=== PATIENT | female | born 1960 ===

== ENCOUNTER 2017-12-29 09:20 | Day surgery (SDC) | payer OTHER ==
[~2017-12-29 09:20] MED LIST: Buffered Lidocaine 0.9% SYRIN* 5 ML/SYR SYRINGE INTRADERM ONE; Dexamethasone IV* 4 MG/ML 1 ML (4 MG) IV SLOW PU ONE; Famotidine IV* 10 MG/ML 2 ML (20 mg) IV ONE
[2017-12-29] MEDS ORDERED: Dexamethasone IV* 4 MG/ML 1 ML (4 MG) ONE (09:26)
[2017-12-29] MEDS ORDERED: ceFAZolin 2 GM PREMIX in ORs 2 GM/50 ML BAG IVPB ONE (09:26)
[2017-12-29] MEDS ORDERED: Famotidine IV* 10 MG/ML 2 ML (20 mg) ONE (09:26)
[2017-12-29] MEDS ORDERED: fentaNYL* 50 MCG/ML 5 ML VIAL (250 MCG VIAL) ONE (09:28)
[2017-12-29] MEDS ORDERED: Midazolam* 1 MG/ML 2 ML VIAL (2 MG) ONE (09:28)
[2017-12-29] MEDS ORDERED: Lidocaine 2% PF * 5 ML VIAL ONE (09:31)
[2017-12-29] MEDS ORDERED: Propofol* 10 MG/ML 20 ML BTL IV PUSH ONE (09:31)
[2017-12-29] MEDS ORDERED: ROPIVACAINE 5 MG/ML 30 ML BTL (0.5%) ONE (10:34)
[2017-12-29] MEDS ORDERED: Lidocain 1% EPI 1:100,000 * 30 ML MDV ONE (10:34)
[2017-12-29] MEDS ORDERED: Ketorolac INJ* 30 MG/ML 1 ML VIAL IV PRN (10:35)
[2017-12-29] MEDS ORDERED: Acetaminophen TAB* 325 MG PO PRN (10:35)
[2017-12-29] MEDS ORDERED: fentaNYL* 50 MCG/ML 2 ML VIAL (100 MCG VIAL) IV PRN (10:35)
[2017-12-29] MEDS ORDERED: Naloxone* 0.4 MG/ML 1 ML VIAL IV PRN (10:35)
[2017-12-29] MEDS ORDERED: DiMENhydriNATE IV* 50 MG/ML VIAL IV PUSH PRN (10:35)
[2017-12-29] MEDS ORDERED: Ondansetron INJ* 2 MG/ML VIAL IV PRN (10:35)
[2017-12-29] MEDS ORDERED: oxyCODONE/Acetamin 5/325 MG* TAB PO PRN (10:35)
[2017-12-29] MEDS ORDERED: Ondansetron INJ* 2 MG/ML VIAL ONE (11:26)
[2017-12-29] MEDS ORDERED: Ondansetron ODT TAB* 4 MG ONE (13:10)
[2017-12-29] MEDS ORDERED: Scopolamine 1.5 mg* PATCH ONE (13:16)
[2017-12-29 13:51] VITALS: BP 103/57
[2017-12-29] MEDS ORDERED: Scopolamine 1.5 mg* PATCH TRANSDERM SCH (14:00)
--- NOTE | 2017-12-31 15:39 | OP ---
DATE OF OPERATION: 12/29/17 FORMERLY [facility] DATE OF : 58 SURGEON: Liset Hill MD. OPENSTACK CLOUD CONSULTING ARCHITECT: None available. PRE-OP DIAGNOSIS: Right knee possible loose body and synovitis. POST-OP DIAGNOSES: 1. Right knee synovitis. 2. Grade 2 chondral changes of the medial femoral condyle. 3. Lateral meniscal fraying. OPERATIVE PROCEDURE: Right knee arthroscopy, synovectomy, chondroplasty. INDICATIONS: Rhonda Wayne is a 57-year-old female who sustained a work-related injury on 08/13/17. She was unable to get back to activities as tolerated. We were concerned for a possible loose body in the knee. Risks and benefits to surgery were discussed in length including, but not limited to, bleeding; infection; damage to nerves, vessels, surrounding structures; wound nonhealing; persistent pain; need for surgery; scarring; stiffness; incomplete relief of symptoms; and risk of anesthesia. She has elected to proceed. COMPLICATIONS: None. ESTIMATED BLOOD LOSS: Minimal. PATHOLOGY SPECIMEN: None. DESCRIPTION OF PROCEDURE: The patient was greeted in the preoperative area by the attending surgeon. Correct extremity was marked, consent was confirmed. The patient was then brought back to the operating suite where she was placed in a supine position on the operating table. She then underwent general anesthesia with LMA intubation, after which she was appropriately positioned in the bed. An unsterile tourniquet was placed high on the right proximal thigh. The right leg was prepped and draped in the usual sterile fashion beginning with chlorhexidine soap, scrub, and alcohol wipe and a final prep with ChloraPrep. After appropriate surgical pause indicating site, side, procedure, and administration of antibiotics, the right knee was intra-articularly injected with 1% lidocaine with epi. An anterolateral portal was made sharply with 11- blade. Scope was introduced to the joint, the joint was examined, There were grade 0 changes to the patellofemoral joints. The medial and lateral gutters were intact without any loose debris. There was significant synovitis in the anteromedially and laterally. The anteromedial portal was made in outside end fashion, and shaver and the electrocautery device were used to remove the abundant synovitis that was present. This exposed the ACL and PCL that were intact. The medial meniscus was identified and found to be intact. She had a ridge along the weightbearing surface of the medial femoral condyle with grade 2 changes along center ridge of the weightbearing zone of the medial femoral condyle. Tibial plateau had grade 1 to 2 changes. The medial meniscus was probed and found to be intact. The lateral port was examined and the lateral femoral condyle had grade 0 changes and lateral plateau had grade 0 changes. The meniscus had some mild fraying. This was debrided back using a shaver. The shaver was then used to do mild chondroplasty of the medial femoral condyle. Then, attention was directed to the synovitis about the patella. Again, the MRIs were pulled out to find the loose body. There was a small suggestion of the loose body about the anterior aspect of the plateau and these small areas were removed, but there was no bony piece. It was all soft tissue type of debris. The knee was then inspected. There was no evidence of impingement left. Any synovitis that was available was removed. Hemostasis was obtained. The knee was then thoroughly lavaged and irrigated. The wounds were then copiously irrigated with sterile saline. The ports were closed with 3 -0 nylon in an interrupted fashion. The knee was intra-articularly injected 0.2 % of ropivacaine. Sterile dressings were applied. A Cryo/Cuff was applied. She was awoken from anesthesia and transferred to PACU in stable condition. POSTOPERATIVE PLAN: She will be weightbearing as tolerated. Crutches for 3 to 5 days. She will be discharged on pain medication. DVT prophylaxis was considered, but deferred due to no previous personal or family history. I will see the patient back in 10 to 14 days. [id number]/[facility] #: [id number] ERNESTO
== END 2017-12-29 13:46 | disposition home or self-care (01) ==
LOC: OREAST 09:20
PROVIDERS: ATTEND Orthopaedic Surgery
DX: S83.241A Other tear of medial meniscus, current injury, right knee, initial encounter (principal); D64.9 Anemia, unspecified; M65.861 Other synovitis and tenosynovitis, right lower leg; X58.XXXA Exposure to other specified factors, initial encounter
CPT/HCPCS: 88304; A9270-GY; J0690; J1100; J2250; J2405; J2704; J2795; J3010

== ENCOUNTER 2018-09-09 05:35 | Observation (INO) | payer OTHER ==
--- NOTE | 2018-08-28 16:40 | HP ---
PREOPERATIVE HISTORY AND PHYSICAL: DATE OF SURGERY: 09/09/18 ATTENDING SURGEON: Dr. Liset Hill.* (DICTATED BY BRANDON PEÑA) PROCEDURE: Right knee unicompartmental arthroplasty. CHIEF COMPLAINT: Right knee. HISTORY OF PRESENT ILLNESS: Rhonda is a 58-year-old female who presents to the clinic for right knee osteoarthritis. She has failed conservative measures and is therefore agreed to undergo a right knee unicompartmental arthroplasty with Dr. Hill on 09/09/18. PAST MEDICAL HISTORY: Anemia, which was diagnosed several years ago and has resolved. PAST SURGICAL HISTORY: Carpal tunnel surgery, ORIF of the left wrist. MEDICATIONS: No active medications. ALLERGIES: No known drug allergies. FAMILY HISTORY: Positive for heart disease in her father and mother with colon cancer. She denies family history of DVT or PE. SOCIAL HISTORY: She lives with her spouse. She works in a factory. She denies tobacco or alcohol use. She exercises regularly. She is right hand dominant. REVIEW OF SYSTEMS: A 14-point review of systems was reviewed with the patient. Positive for current complaint, otherwise negative. Denies fever, chills, chest pain, shortness of breath, history of bleeding disorder, history of DVT or PE. PHYSICAL EXAMINATION GENERAL: A 58-year-old well-developed, well-nourished female, in no acute distress. VITAL SIGNS: Height 63, weight 114, pulse 59, blood pressure 104/72, respiratory rate 18, temperature 97.9, BMI 20.2. HEENT: Normocephalic, atraumatic. PERRLA. Throat clear. NECK: Supple. PULMONARY: Lungs are clear to auscultation bilaterally. No wheezing, rhonchi, or rales. CARDIO: Regular rate and rhythm. S1, S2. No murmurs, gallops, or rubs. No edema. ABDOMEN: Positive bowel sounds. Soft, nontender. NEUROLOGIC: Alert and oriented x3. Cranial nerves grossly intact. MUSCULOSKELETAL: Right lower extremity: Skin is intact. No warmth or erythema. Range of motion 0 to 140. Stable to varus and valgus stress. Stable Blanquita. Negative posterior drawer. Tenderness to palpation of the medial joint line and medial femoral condyle. Mild effusion. +2 DP pulse. +5/5 strength to the ankle dorsiflexion and plantar flexion. Sensation intact to light touch distally. Brisk cap refill. DIAGNOSTIC STUDIES: MRI of the right knee revealed cartilage degeneration of the medial compartment. IMPRESSION: Right knee osteoarthritis. PLAN: The patient is scheduled to undergo a right knee unicompartmental arthroplasty with Dr. Hill on 09/09/18. Oxycodone will be used for postop pain management. She will follow up in 10 to 14 days postop for followup and suture removal. BRANDON PEÑA [id number]/[facility] #: [id number] MTDJack
[~2018-09-09 05:35] MED LIST changes: -Buffered Lidocaine 0.9% SYRIN* 5 ML/SYR SYRINGE INTRADERM ONE; +Buffered Lidocaine 1% SYRIN* 1 ML/SYRINGE INTRADERM ONE; -Dexamethasone IV* 4 MG/ML 1 ML (4 MG) IV SLOW PU ONE; -Famotidine IV* 10 MG/ML 2 ML (20 mg) IV ONE; +Ondansetron TAB* 4 MG PO ONE
--- OUTSIDE RECORDS SUMMARY | 2018-09-09 05:38 | XMS REPORT | Continuity of Care Document ---
:1960 External Reference #:[id number] Author Name Loan Lassiter Care Team Providers Name Role Phone Wanda Ramos MD Primary Care Physician Unavailable Payers Date Identification Numbers Payment Provider Subscriber Onset: 2017 Policy Number: [id number] [place] [facility] [employer] Name: fax: [address] [phone] PayID: [id number] [place] [address] Effective: 2012 Policy Number: [id number] [employer] Rhonda Wayne Onset: 2012 PayID: STEFFANY [address] [place] [address] Problems Active Problems Provider Date Loose body in knee Liset Hill MD Onset: 12/23/2017 Current tear of medial cartilage AND/OR meniscus Liset Hill MD Onset: 11/2017 of knee Derangement of knee Liset Hill MD Onset: 01/09/2018 Localized, primary osteoarthritis Liset Hill MD Onset: 05/01/2018 Enthesopathy of knee Liset Hill MD Onset: 02/10/2018 Family History Date Family Member(s) Observation Comments General Heart Disease General Cancer Social History Type Date Description Comments Sex Unknown Marital Status Lives With Spouse Occupation Currently Working ETOH Use Denies alcohol use Tobacco Use Start: Unknown Patient has never smoked Recreational Drug Use Denies Drug Use Smoking Status Reviewed: 08/28/18 Patient has never smoked Exercise Type/Frequency Exercises regularly Allergies, Adverse Reactions, Alerts Description No Known Drug Allergies Medications Active Medications SIG Qnty Indications Ordering Provider Date Diclofenac Sodium apply 1 gram 3-4 200gm Liset Hill MD 08/28/2018 1% times a day to Gel painful area Walker [place] Wheels/5 1 rolling walker 1units M17.11 Liset Hill MD Adjustment Ht 63 Wt 128 Holes/1-8" 1-8" Misc History Medications Mobic take 1 daily 30tabs M17.11 Liset Hill MD 07/30/2018 - 15mg Tablets with food. 08/27/2018 Diclofenac Sodium apply 1-2 gm 300gm M17.11 Liset Hill MD 07/30/2018 - 3% Gel 3-4 times a day 08/27/2018 to shoulder as needed Oxycodone-Acetaminophen 1 tabs by mouth 10tabs Liset Hill MD 2017 - every 4-6 hours 01/01/2018 5-325mg Tablets as needed for pain No Active Medications Unknown 09/16/2017 - 09/16/2017 Ambien CR 30tabs Mariposa Benítez, 04/05/2013 - 6.25mg Tablets ER M.D. 09/15/2017 Medrol Dosepak use as directed 1pack Mariposa Benítez, 11/04/2012 - 4mg Tablets M.D. 09/14/2017 Ibuprofen 1 po qid prn 60tabs Mariposa Benítez, 09/08/2012 - 600mg Tablets M.D. 09/15/2017 Ultracetultracet 1 - 2 po q4-6hr 30tabs Mariposa Benítez, 09/02/2012 - 37.5-325mg prn pain M.D. 09/14/2017 Tablets Motrin Ib prn 60tabs Unknown - 200mg Tablets 09/15/2017 Ibuprofen as needed Unknown - 200mg Capsules 08/27/2018 Medications Administered in Office Medication SIG Qnty Indications Ordering Provider Date Injection Hyaluronan Or Derivative, Liset Hill MD 06/23/2018 Euflexxa Per Dose Injection Injection Hyaluronan Or Derivative, Liset Hill MD 06/16/2018 Euflexxa Per Dose Injection Injection Hyaluronan Or Derivative, Liset Hill MD 06/09/2018 Euflexxa Per Dose Injection Triamcinolone (Kenalog) Liset Hill MD 03/24/2018 Injection Vital Signs Date Vital Result Comment 08/28/2018 10:42am Height 63 inches 5'3" Weight 114.00 lb Heart Rate 59 /min BP Systolic 104 mmHg BP Diastolic 72 mmHg Respiratory Rate 18 /min Body Temperature 97.9 F Pain Level 4 BMI (Body Mass Index) 20.2 kg/m2 07/30/2018 10:20am Height 63 inches 5'3" Weight 128.00 lb BP Systolic 118 mmHg BP Diastolic 74 mmHg Respiratory Rate 18 /min Pain Level 5 BMI (Body Mass Index) 22.7 kg/m2 06/23/2018 10:25am Height 63 inches 5'3" Weight 128.00 lb BP Systolic 114 mmHg BP Diastolic 68 mmHg Respiratory Rate 18 /min Pain Level 2 BMI (Body Mass Index) 22.7 kg/m2 06/16/2018 10:36am Height 63 inches 5'3" Weight 128.00 lb BP Systolic 124 mmHg BP Diastolic 62 mmHg Respiratory Rate 18 /min Pain Level 4 BMI (Body Mass Index) 22.7 kg/m2 06/09/2018 1:29pm Height 63 inches 5'3" Weight 128.00 lb Heart Rate 64 /min BP Systolic 124 mmHg BP Diastolic 80 mmHg Respiratory Rate 16 /min Body Temperature 97.4 F Pain Level 4 BMI (Body Mass Index) 22.7 kg/m2 05/01/2018 9:02am Height 63 inches 5'3" Heart Rate 64 /min BP Systolic 98 mmHg BP Diastolic 70 mmHg Body Temperature 97.2 F Pain Level 3 03/24/2018 8:39am Height 63 inches 5'3" Weight 123.00 lb per patient Heart Rate 63 /min Respiratory Rate 16 /min Body Temperature 98.7 F Pain Level 4 BMI (Body Mass Index) 21.8 kg/m2 02/10/2018 8:26am Height 63 inches 5'3" Heart Rate 60 /min BP Systolic Sitting 110 mmHg BP Diastolic Sitting 82 mmHg Respiratory Rate 16 /min Body Temperature 97.8 F Pain Level 4 01/09/2018 8:18am Height 63 inches 5'3" Weight 123.00 lb BP Systolic 110 mmHg BP Diastolic 70 mmHg Respiratory Rate 18 /min Body Temperature 97.5 F Pain Level 5 BMI (Body Mass Index) 21.8 kg/m2 12/23/2017 8:35am Height 63 inches 5'3" Weight 123.00 lb BP Systolic 104 mmHg BP Diastolic 62 mmHg Respiratory Rate 18 /min Body Temperature 97.2 F Pain Level 4 BMI (Body Mass Index) 21.8 kg/m2 11/18/2017 9:06am Height 63 inches 5'3" Weight 122.00 lb Heart Rate 56 /min BP Systolic 114 mmHg BP Diastolic 70 mmHg Body Temperature 97.7 F Pain Level 4 BMI (Body Mass Index) 21.6 kg/m2 11/10/2017 11:14am Height 63 inches 5'3" Weight 120.00 lb Heart Rate 80 /min BP Systolic Sitting 114 mmHg BP Diastolic Sitting 60 mmHg Respiratory Rate 12 /min Pain Level 4 BMI (Body Mass Index) 21.3 kg/m2 09/16/2017 2:13pm Height 63 inches 5'3" Weight 120.00 lb BP Systolic Sitting 116 mmHg BP Diastolic Sitting 68 mmHg Respiratory Rate 16 /min Pain Level 4 BMI (Body Mass Index) 21.3 kg/m2 05/04/2014 11:11am Heart Rate 70 /min BP Systolic Sitting 118 mmHg BP Diastolic Sitting 78 mmHg 09/29/2013 9:59am Weight 116.00 lb Heart Rate 76 /min BP Systolic Sitting 118 mmHg BP Diastolic Sitting 78 mmHg 08/30/2013 9:57am Heart Rate 68 /min BP Systolic Sitting 118 mmHg BP Diastolic Sitting 78 mmHg 07/19/2013 10:04am Heart Rate 68 /min BP Systolic Sitting 120 mmHg BP Diastolic Sitting 70 mmHg 05/10/2013 9:08am Heart Rate 70 /min 09/02/2012 8:39am Height 64 inches 5'4" Weight 120.00 lb Heart Rate 72 /min BP Systolic Sitting 118 mmHg BP Diastolic Sitting 78 mmHg BMI (Body Mass Index) 20.6 kg/m2 Results Test Date Facility Test Result H/L Range Note Laboratory test 12/29/2017 [facility] Surgical SEE RESULT 1 , [address] [place] [address] [phone] 1 [id number] 2 SEE RESULT BELOW Name: RHONDA WAYNE : [address]: Liset Hill MD Acct: [id number] Unit: [id number] AGE: 57 Location: [facility] Re12/29/17 SEX: F Status: MARY VASQUEZC SPEC: [id number] MAXIMUS: 12/29/171148 SUBM DR: Liset Hill MD REQ: [id number] RECD: 12/29/17 STATUS: SOUT _ ORDERED: LEVEL 3 COMMENTS: [id number] FINAL DIAGNOSIS Meniscus, right knee, partial excision: -- Benign synovial tissue. PRE-OPERATIVE DIAGNOSIS Medial meniscus tear and loose body right knee GROSS DESCRIPTION The specimen is received in formalin labeled, Fragment of Meniscus Right Knee , and consists of two aguayo-pink irregular rubbery fibrous tissue fragments aggregating 0.6 x 0.5 x 0.3 cm which are submitted entirely in one cassette. Signed by and Reported on: Gisell Bennett MD 12/30/17 1135 END OF REPORT DEPARTMENT OF PATHOLOGY, [address] [place] [address] Noé Gillis M.D. Director [facility] # [id number] Procedures Date Code Description Status 06/23/2018 16729 US Guide Ndle PLCMT Imaging Supervise & Interp Completed 06/23/201879100 Inject/Drain Joint/Bursa Major W/O US Completed 06/16/2018 37415 US Guide Ndle PLCMT Imaging Supervise & Interp Completed 06/16/2018 92351 Inject/Drain Joint/Bursa Major W/O US Completed 06/09/2018 58759 US Guide Ndle PLCMT Imaging Supervise & Interp Completed 06/09/201864366 Inject/Drain Joint/Bursa Major W/O US Completed 03/24/2018 95174 Inject/Drain Joint/Bursa Major W/O US Completed 12/29/2017 71563 Arthroscopy,Knee,Meniscectomy Medial Or Lateral Completed 04/29/2013 17897 Nerve Conduction, Sensory Completed 04/29/2013 21508 Nerve Conduction, Motor W/O F-Wave Study Completed 10/02/2012 15605 Carpal Tunnel Release Completed 07/16/2012 98073 Nerve Conduction 07-08 Studies Completed Encounters Type Date Location Provider Dx Diagnosis Office Visit 07/30/2018 Orthopedic Liset Hill MD M17.11 Unilateral primary 10:15a [facility] [place] osteoarthritis, right knee S83.241D Oth tear of medial meniscus, current injury, r knee, subs M17.11 Unilateral primary osteoarthritis, right knee Office Visit 05/01/2018 9:15a Orthopedic Liset Hill S83.241D Oth tear of [facility] MD teresita Hopson meniscus, current injury, r knee, subs M17.11 Unilateral primary osteoarthritis, right knee Office Visit 11/18/2017 9:00a Orthopedic Services Liset Hill, M23.41 Loose body in Of [facility] knee, right knee S83.241A Oth tear of medial meniscus, current injury, r knee, init Office Visit 11/10/2017 11:30a Orthopedic Raúl Herr M23.41 Loose body in [facility] Hannah Perez MD knee, right knee AT [place] Office Visit 09/16/2017 2:00p Orthopedic Raúl Herr M23.91 Unspecified [facility] Hannah Perez MD internal AT [place] derangement of right knee M25.461 Effusion, right knee W18.40xA Slipping, tripping and stumbling w/o falling, unsp, init Office Visit 05/04/2014 11:15a Orthopedic Mariposa Benítez, 354.0 Carpal Tunnel Services Of Bee Robber M.D. Syndrome AT [place] Office Visit 09/29/2013 10:00a Orthopedic Mariposa Benítez, 354.0 Carpal Tunnel Services Of Bee Robber M.D. Syndrome AT [place] Office Visit 07/19/2013 10:00a Orthopedic Mariposa Benítez 354.0 Carpal Tunnel Services Of Bee Robber M.D. Syndrome AT [place] Office Visit 05/10/2013 9:00a Orthopedic Mariposa Benítez, 354.0 Carpal Tunnel Services Of Bee Robber M.D. Syndrome AT [place] Office Visit 04/05/2013 10:15a Orthopedic Mariposa Benítez 354.0 Carpal Tunnel Services Of Bee Robber M.D. Syndrome AT [place] Office Visit 02/22/2013 10:00a Orthopedic Mariposa Benítez, 354.0 Carpal Tunnel Services Of Bee Robber M.D. Syndrome AT [place] Office Visit 01/06/2013 8:00a Orthopedic Mariposa Benítez 354.0 Carpal Tunnel Services Of Bee Robber M.D. Syndrome AT [place] Office Visit 08/03/2012 10:15a Orthopedic Mariposa Benítez 354.0 Carpal Tunnel Services Of Bee Robber M.D. Syndrome AT [place] Office Visit 07/16/2012 2:00p Edward/Tyson Mckeon 354.0 Carpal Tunnel Neurologic Serv Nathan Noriega Syndrome Of [facility] Plan of Treatment Future Appointment(s):09/09/2018 9:45 am - Emy Gibson PA-C at [facility] [place]09/09/2018 9:45 am - Liset Hill MD at [facility]08/28/2018 - Liset Hill, MDM17.11 Unilateral primary osteoarthritis, right kneeFollow up:Follow up: 10-14 days post opS83.241D Other tear of medial meniscus, current injury, right knee, s
--- OUTSIDE RECORDS SUMMARY | 2018-09-09 05:38 | XMS REPORT | Continuity of Care Document ---
:1960 External Reference #:[id number] Author Name Emy Gibson PA-C Address [address] [place] [address], [address] [place] [address] Care Team Providers Name Role Phone Wanda Ramos MD Primary Care Physician Unavailable Payers Date Identification Numbers Payment Provider Subscriber Onset: 2017 Policy Number: [id number] [employer] Wayne [employer] Name: fax: [address] [address] PayID: [id number] [place] [address] Effective: 2012 Policy Number: [id number] [employer] Rhonda Wayne Onset: 2012 PayID: TRAVE [address] [place] [address] Problems Active Problems Provider Date Loose body [...] a day to Gel painful area Walker [place] Wheels/5 1 rolling walker 1units M17.11 Liset Hill MD Adjustment Ht 63 Wt 128 Holes/1-8" 1-03/24" Misc History Medications Mobic take 1 daily [...] Date Facility Test Result H/L Range Note Urinalysis Profile 08/28/2018 [facility] Urine Color Yellow [address] [place] [address] [phone] Urine Appearance Clear Urine Specific [place] 1.011 N 1.010-1.030 Urine pH 5.0 N 5-9 Urine Urobilinogen Negative Negative Urine Ketones Negative Negative Urine Protein Negative Negative Urine Leukocytes Negative Negative Urine Blood Negative Negative * * Abnormal Negative 2 Urine Nitrite Negative Negative Urine Bilirubin Negative Negative Urine Glucose Negative Negative CBC Auto Diff 08/28/2018 [facility] White Blood 4.3 10^3/uL N 3.5-10.[address] [place] [address] [phone] Red Blood Count 4.36 10^6/uL N 3.70-4.87 Hemoglobin 13.6 g/dL N 12.0-16.0 Hematocrit 40 % N 35-47 Mean Corpuscular Volume 92 fL N 80-97 Mean Corpuscular Hemoglobin 31 pg N 27-31 Mean Corpuscular HGB Conc 34 g/dL N 31-36 Red Cell Distribution Width 13 % N 10-15 Platelet Count 243 10^3/uL N 150-450 Mean Platelet Volume 7.8 fL N 7.4-10.4 Abs Neutrophils 2.4 10^3/uL N 1.5-7.7 Abs Lymphocytes 1.4 10^3/uL N 1.0-4.8 Abs Monocytes 0.4 10^3/uL N 0-0.8 Abs Eosinophils 0.1 10^3/uL N 0-0.6 Abs Basophils 0.1 10^3/uL N 0-0.2 Abs Nucleated RBC 0.0 10^3/uL Granulocyte % 55.8 % Lymphocyte % 31.9 % Monocyte % 8.5 % Eosinophil % 2.5 % Basophil % 1.3 % Nucleated Red Blood Cells % 0.1 Basic Metabolic Panel 08/28/2018 [facility] Sodium 140 mmol/L N 135-[address] [place] [address] [phone] Potassium 3.9 mmol/L N 3.5-5.0 Chloride 107 mmol/L N 101-111 Co2 Carbon Dioxide 28 mmol/L N 22-32 Anion Gap 5 mmol/L N 2-11 Glucose 90 mg/dL N 70-100 Blood Urea Nitrogen 16 mg/dL N 6-24 Creatinine 0.75 mg/dL N 0.51-0.95 BUN/Creatinine Ratio 21.3 High 8-20 Calcium 9.8 mg/dL N 8.6-10.3 Egfr Non- 79.1 >60 Egfr 95.7 >60 3 Laboratory test 08/28/2018 [facility] TSH (Thyroid 1.83 mcIU/mL N 0.34-5.[address] Stim Horm) [place] [address] [phone] Free T4 (Free Thyroxine) 0.73 ng/dL N 0.61-1.12 5 Inr/Protime 08/28/2018 [facility] Inr 1.01 N 0.82-1.[address] [place] [address] [phone] Laboratory test 08/28/2018 [facility] Partial 39.9 seconds High 26.0-38.0 [address] [place] [address] Time PTT [phone] Type & Screen 08/28/2018 [facility] Patient A Positive [address] [place] [address] [phone] Antibody Screen NEGATIVE Urine Culture And 08/28/2018 [facility] Urine Culture SEE RESULT [address] BELOW [place], [place] [id number] [phone] Laboratory test 12/29/2017 [facility] Surgical SEE RESULT 9 , [address] Pathology BELOW [place], [place] [address] [phone] 1 AA 09/09 2 *Ascorbic acid is present which may interfere with detection of blood. 3 Because ethnic data is not always readily available, this report includes an eGFR for both -Americans and non- Americans. The National Kidney Disease Education Program (NKDEP) does not endorse the use of the MDRD equation for patients that are not between the ages of 18 and 70, are , have extremes of body size, muscle mass, or nutritional status, or are non- or non-. According to the National Kidney Foundation, irrespective of diagnosis, the stage of the disease is based on the level of kidney function: Stage Description GFR(mL/min/1.73 m(2)) 1 Kidney damage with normal or decreased GFR 90 2 Kidney damage with mild decrease in GFR 60-89 3 Moderate decrease in GFR 30-59 4 Severe decrease in GFR 15-29 5 Kidney failure <15 (or dialysis) 4 AA 09/09 5 AA 09/09 6 Standard intensity warfarin therapeutic range: 2.0-3.0 High intensity warfarin therapeutic range: 2.5-3.5 7 09/09 SEE RESULT BELOW Name: RHONDA WAYNE : [address]: Liset Hill MD Acct: [id number] Unit: [id number] AGE: 58 Location: PAT Re08/28/18 SEX: F Status: REG REF SPEC: [id number] MAXIMUS: 08/28/18-[address] [facility] [address]: Liset Hill MD REQ: [id number] RECD: 08/28/18-1417 STATUS: LORENA WALLACE DR: Wanda Ramos MD _ SOURCE: URINE SPDESC: ORDERED: Urine Culture COMMENTS: [id number] Procedure Result Reported Site Urine Culture Final 08/30/18- 930 ML No Growth (<1,000 CFU/mL) * ML - Main Lab . END OF REPORT DEPARTMENT OF PATHOLOGY, [address] [place] [address] Noé Gillis M.D. Director [facility] # [id number] SEE RESULT BELOW Name: RHONDA WAYNE : [address]: Liset Hill MD Acct: [id number] Unit: [id number] AGE: 57 Location: [facility] Re12/29/17 SEX: F Status: MARY DICK SPEC: [id number] MAXIMUS: 12/29/17-[address] [facility] [address]: Liset Hill MD REQ: [id number] RECD: 12/29/17 STATUS: SOUT _ ORDERED: LEVEL 3 COMMENTS: [id number] FINAL DIAGNOSIS Meniscus, right knee, partial excision: [...] 1135 END OF REPORT DEPARTMENT OF PATHOLOGY, [address] [place] [address] Noé Gillis M.D. Director [facility] # [id number] Procedures Date Code Description Status 06/23/2018 27092 US Guide Ndle PLCMT Imaging Supervise & Interp Completed 06/23/201805934 Inject/Drain Joint/Bursa Major W/O US Completed 06/16/2018 89125 US Guide Ndle PLCMT Imaging Supervise & Interp Completed 06/16/201846984 Inject/Drain Joint/Bursa Major W/O US Completed 06/09/2018 08847 US Guide Ndle PLCMT Imaging Supervise & Interp Completed 06/09/201887627 Inject/Drain Joint/Bursa Major W/O US Completed 03/24/2018 23854 Inject/Drain Joint/Bursa Major W/O US Completed 12/29/2017 10534 Arthroscopy,Knee,Meniscectomy Medial Or Lateral Completed 04/29/2013 02329 Nerve Conduction, Sensory Completed 04/29/2013 85301 Nerve Conduction, Motor W/O F-Wave Study Completed 10/02/2012 99192 Carpal Tunnel Release Completed 07/16/2012 00665 Nerve Conduction 07-08 Studies Completed Encounters Type Date Location Provider Dx Diagnosis Office Visit 07/30/2018 Orthopedic Liset Hill MD M17.11 Unilateral primary 10:15a [facility] osteoarthritis, right knee S83.241D Oth tear of medial meniscus, current injury, r knee, subs M17.11 Unilateral primary osteoarthritis, right knee Office Visit 05/01/2018 9:15a Orthopedic Liset Hill S83.241D Oth tear of [facility] [place] meniscus, current injury, r knee, subs M17.11 Unilateral primary osteoarthritis, right knee Office Visit 11/18/2017 9:00a Orthopedic Services Liset Hill M23.41 Loose body in [facility] HOBBS knee, right knee S83.241A Oth tear of medial meniscus, current injury, r knee, init Office Visit 11/10/2017 11:30a Fara Herr M23.41 Loose body in [facility] Hannah Perez MD knee, right knee AT [place] Office Visit 09/16/2017 2:00p Fara Herr M23.91 Unspecified [facility] Hannah Perez MD internal AT [place] derangement of right knee M25.461 Effusion, right knee W18.40xA Slipping, tripping and stumbling w/o falling, unsp, init Office Visit 05/04/2014 11:15a Orthopedic Mariposa Benítez 354.0 Carpal Tunnel Services Of Band Presser M.D. Syndrome AT [place] Office Visit 09/29/2013 10:00a Orthopedic [facility]ip[facility] Benítez 354.0 Carpal Tunnel Services Of [facility] Presser M.D. Syndrome AT [place] Office Visit 07/19/2013 10:00a Orthopedic Marip[place] Benítez 354.0 Carpal Tunnel Services Of [facility] Presser M.D. Syndrome AT [place] Office Visit 05/10/2013 9:00a Orthopedic Mariposa Benítez, 354.0 Carpal Tunnel [facility] Presser M.D. Syndrome AT [place] Office Visit 04/05/2013 10:15a Orthopedic Mariposa Benítez, 354.0 Carpal Tunnel [facility] M.D. Syndrome AT [place] Office Visit 02/22/2013 10:00a Orthopedic Mariposa Benítez, 354.0 Carpal Tunnel [facility]er M.D. Syndrome AT [place] Office Visit 01/06/2013 8:00a Orthopedic Mariposa Benítez, 354.0 Carpal Tunnel [facility] Presser M.D. Syndrome AT [place] Office Visit 08/03/2012 10:15a Orthopedic Mariposa Benítez, 354.0 Carpal Tunnel [facility] M.D. Syndrome AT [place] Office Visit 07/16/2012 2:00p [place]/Tyson Mckeon 354.0 Carpal Tunnel Neurologic Serv Nathan Noriega Syndrome Of [facility] Plan of Treatment Future Appointment(s):09/22/2018 8:45 am - Liste Hill MD at [facility]A.09/09/2018 7:30 am - Emy Gibson PA-C at [facility]A.09/09/2018 7:30 am - Liset Hill MD at [facility].A.08/28/2018 - Liset Hill, MDM17.11 Unilateral primary osteoarthritis, right kneeFollow up:Follow up: 10-14 days post opS83.241D Other tear of medial meniscus, current injury, right knee, s
[2018-09-09] MEDS ORDERED: HYDROmorphone INJ1* 1 MG/ML SYRINGE IV PRN (05:39)
[2018-09-09] MEDS ORDERED: fentaNYL* 50 MCG/ML 2 ML VIAL (100 MCG VIAL) IV PRN (05:39)
[2018-09-09] MEDS ORDERED: DiMENhydriNATE IV* 50 MG/ML VIAL IV PUSH PRN (05:39)
[2018-09-09] MEDS ORDERED: Naloxone* 0.4 MG/ML 1 ML VIAL IV PRN (05:39)
[2018-09-09] MEDS ORDERED: PROCHLORPERAZINE INJ 5 MG/ML 2 ML VIAL IV PRN (05:39)
[2018-09-09] MEDS ORDERED: Scopolamine 1.5 mg* PATCH TRANSDERM ONE (06:00)
[2018-09-09] MEDS ORDERED: Famotidine IV* 10 MG/ML 2 ML (20 mg) IV ONE (06:00)
[2018-09-09] MEDS ORDERED: Lactated Ringers 1000 ML Bag* 1,000 ML IV SCH ×2 (06:00→11:00)
[2018-09-09] MEDS ORDERED: Gabapentin CAP(*) 300 MG PO ONE (06:00)
[2018-09-09] MEDS ORDERED: Dexamethasone TAB* 4 MG PO ONE (06:00)
[2018-09-09] MEDS ORDERED: Acetaminophen TAB* 325 MG PO ONE (06:00)
[2018-09-09] MEDS ORDERED: celeCOXIB CAP* 100 MG PO ONE (06:00)
[2018-09-09] MEDS ORDERED: Gabapentin CAP(*) 300 MG ONE (06:13)
[2018-09-09] MEDS ORDERED: Ondansetron ODT TAB* 4 MG ONE (06:13)
[2018-09-09] MEDS ORDERED: celeCOXIB CAP* 100 MG ONE (06:13)
[2018-09-09] MEDS ORDERED: Dexamethasone TAB* 4 MG ONE (06:13)
[2018-09-09] MEDS ORDERED: Acetaminophen TAB* 325 MG ONE (06:13)
[2018-09-09] MEDS ORDERED: Famotidine IV* 10 MG/ML 2 ML (20 mg) ONE (06:14)
[2018-09-09] MEDS ORDERED: Scopolamine 1.5 mg* PATCH ONE (06:14)
[2018-09-09] MEDS ORDERED: ceFAZolin 2 GM in NS PREMIX(*) 2 GM/100 ML BAG IVPB ONE (06:14)
[2018-09-09] MEDS ORDERED: Buffered Lidocaine 1% SYRIN* 1 ML/SYRINGE INTRADERM ONE (06:14)
[2018-09-09] MEDS ORDERED: Tranexamic Acid 1,000 MG in NS 0.9% 50 ML IV ONE (07:00)
[2018-09-09] MEDS ORDERED: KETAMINE HCL* 50 MG/ML 10 ML VIAL ONE (07:05)
[2018-09-09] MEDS ORDERED: Midazolam* 1 MG/ML 10 ML VIAL (10 MG) ONE (07:05)
[2018-09-09] MEDS ORDERED: Bupivacaine 0.25% W/EPI* 10 ML SDV ONE (08:41)
[2018-09-09] MEDS ORDERED: Propofol* 500 MG/50 ML BTL ONE (08:41)
[2018-09-09] MEDS ORDERED: Bupivacaine 0.5% SDV PF* 30ML VIAL ONE (08:41)
[2018-09-09] MEDS ORDERED: Phenylephrine 10 MG/ML VIAL* 1 ML VIAL ONE (08:41)
[2018-09-09] MEDS ORDERED: Glycopyrrolate IV* 0.2 MG/ML 1 ML VIAL ONE (08:41)
[2018-09-09] MEDS ORDERED: Ropivacaine 0.2% * 2 MG/ML VIAL ONE ×2 (09:38→10:01)
[2018-09-09] MEDS ORDERED: EPHEDrine (Pressors)* 50 MG/ML VIAL ONE (09:54)
[2018-09-09] MEDS ORDERED: Ondansetron INJ* 2 MG/ML VIAL IV PRN (10:33)
[2018-09-09] MEDS ORDERED: Polyethylene Glycol 3350* 17 GM PACKET PO PRN (10:33)
[2018-09-09] MEDS ORDERED: oxyCODONE TAB* 5 MG TAB PO PRN (10:33)
[2018-09-09] MEDS ORDERED: diPHENhydraMINE IV* 50 MG/ML 1 ml VIAL (BENADRYL) IV PRN (10:33)
[2018-09-09] MEDS ORDERED: traZODone TAB* 50 MG TAB PO PRN (10:33)
[2018-09-09] MEDS ORDERED: diPHENhydraMINE PO* 25 MG PO PRN (10:33)
[2018-09-09] MEDS ORDERED: Cyclobenzaprine TAB* 10 MG PO PRN (10:33)
[2018-09-09] MEDS ORDERED: Morphine INJ* 2 MG/ML 1 ML SYRINGE (TWO MG - NEW SYRINGE VERSION) IV PRN (10:33)
[2018-09-09] MEDS ORDERED: Magnesium Hydroxide LIQ* 30 ML UDC PO PRN (10:33)
[2018-09-09] MEDS ORDERED: traMADol TAB* 50 MG PO PRN (10:33)
[2018-09-09] MEDS ORDERED: Bisacodyl SUPP* 10 MG SUPP PR PRN (10:33)
[2018-09-09] MEDS ORDERED: Ondansetron ODT TAB* 4 MG PO PRN (10:33)
[2018-09-09] MEDS ORDERED: oxyCODONE/Acetamin 5/325 MG* TAB PO PRN ×2 (10:41)
--- NOTE | 2018-09-09 13:33 | PN ---
Progress Note - Progress Note Date of Service: 09/09/18
--- NOTE | 2018-09-09 13:58 | OP ---
DATE OF OPERATION: 09/09/18 - ROOM #349 DATE OF : 58 SURGEON: Liset Hill MD CHAR FILTER OPERATOR HELPER: 1. BRANDON Collins 2. Nayana Heck. Assistants were needed for the entirety of the case to help with positioning, retraction, and utilized throughout all portions of the case. ANESTHESIOLOGIST: Dr. Barker. ANESTHESIA: Spinal with regional anesthesia. PRE-OP DIAGNOSIS: POST-OP DIAGNOSIS: COMPLICATION: None. TOURNIQUET TIME: 160 minutes at 250 mmHg. ESTIMATED BLOOD LOSS: Less than 25. IMPLANTS USED: Zuk size 3 medial right tibia, size C medial right femoral component, and size 8 spacer. INDICATIONS: Rhonda Wayne is a 58-year-old female with a chondral lesion to the medial femoral condyle with a kissing lesion on the plateau. She initially went through an arthroscopy and continued to struggle after surgery. We then did injections including viscosupplementation. She has been unable to stand for long periods of time. She has persistent pain, refractory to conservative management. She would like to proceed with surgical treatment. After obtaining Workers Comp approval, she elected to proceed with surgical treatment. Risks and benefits were discussed at length including, but not limited to bleeding, infection, damage to nerves, vessels, surrounding structures, wound nonhealing. persistent pain, need for surgery, scarring, stiffness, incomplete relief of symptoms, risk of anesthesia, fracture, persistent pain, need for further surgery, worsening arthritis, loosening, fracture, risk for DVT. She has elected to proceed. DESCRIPTION OF PROCEDURE: The patient was greeted in the preoperative area by the attending surgeon. Correct extremity was marked and consent was confirmed. The patient underwent adductor nerve block and she was brought back to the operating suite. She was placed in the supine position on the operating table. She then underwent spinal anesthesia, after which she was placed in supine position on the bed. The unsterile tourniquet was placed high on the proximal thigh. Lateral posts were placed to keep the knee in hyperflexion at 90 degrees. The right leg was then prepped and draped in usual sterile fashion beginning with Betadine, scrub, alcohol wipe and a Betadine soak, because she had a reaction to chlorhexidine scrub. After appropriate surgical pause indicating side, site, procedure, and administration of antibiotics, a 15-blade was used to make an incision in the medial aspect of the femur, medial parapatellar arthrotomy was then done. Soft tissue carefully dissected, the knee was exposed. There was a ridge of grade 3 chondral changes that was 1.5 cm in width with about 4 cm in length with a small kissing lesion of the tibia. The ACL and PCL were intact. The soft tissue was carefully exposed. The medial aspect of the plateau was exposed as well with care to protect the MCL. The meniscus was exposed and the anterior horn was cut and it was then removed. At this point, the Navio femoral and tibial pins were then placed in the joint intraarticularly, but out of the articular surface. Then 2 Steinmann pins were placed in the tibia for the tubal component, 2 were placed in the femur through separate stab incisions. After this was done, the Navio system was started and check points were obtained. Range of motion was obtained for the preoperative evaluation. Based on the navigation system, size 3 tibia, size C femur were chosen. The templating was then done and the garcía was then used using the robot to resect the appropriate amount of bone. Once this was complete, any excess bone was removed with a rongeur. A rasp was used to flatten out the tibial surface. The appropriate peg holes were then drilled. The trial components were then placed and the knee was taken through range of motion. Adjustments were made based on tracking. After this was done, the final components were chosen. The range of motion was found to be 0 to 135 degrees, stable to varus and valgus stress, with correction of 5 degrees of varus to 2 degrees of varus. The excess meniscus was removed entirely. The wounds were then copiously irrigated and the cement was mixed on the back table. After which, the cement was placed. Care was taken not not extrude posteriorly as it is hard to remove any excess cement. The tibia was cemented first and the femoral component after which the trial of poly was then placed and knee was placed in extension with axial load. Tracking was then checked again and found to be appropriate. The system was used to check the fit of the prosthesis and was found to be appropriate. The final poly was chosen and packed into position. The wounds were copiously irrigated with sterile saline. After the cement was cured, the knee was taken through range of motion and found again to track appropriately. Any excess cement was removed. The wounds were then copiously irrigated with sterile saline. The capsule was injected with 0.2% ropivacaine. The was closed. Arthrotomy was closed with #1 Vicryl in interrupted fashion. The wounds were irrigated again. The stab wounds were closed with 3-0 Monocryl in the subcutaneous in a running fashion. The incision was closed with 3-0 nylon in running fashion. Sterile dressings were applied. The Cryo/Cuff was applied. She was woken from anesthesia and transferred to PACU in stable condition. The tourniquet was deflated for a total time of 160 minutes. POSTOPERATIVE PLAN: The Lorenzo that was previously placed will be discharged. She will be on pain management with Tylenol, Celebrex, gabapentin, and p.r.n. oxycodone. She will be discharged on postop day #1. She will receive 24 hours of postoperative antibiotics, start with physical therapy right away, weightbearing as tolerated. I will see the patient back in 10 to 14 days. [id number]/[facility] #: [id number] MTDD
[2018-09-09] MEDS ORDERED: Acetaminophen TAB* 325 MG PO SCH (14:30)
[2018-09-09] MEDS ORDERED: ceFAZolin 1 GM ADVAN(*) 1 GM in NS 0.9% 50 ML* 50 ML IVPB SCH (15:30)
[2018-09-09 15:37] VITALS: BP 133/79
--- NOTE | 2018-09-09 15:51 | DS ---
Orthopedic Discharge Summary - Discharge Summary Date of Admission:09/09/18 Date of Discharge: 09/09/18 Date of Surgery: 09/09/18 Attending Orthopedic Provider: Dr Hill Pre-operative Diagnosis: Right knee osteoarthritis Operative Procedure: Right knee Disposition of Patient: [] Condition of Patient: [] History: SHAILA URBANO is a 58 year old F with years of increasingly severe [] pain. Patient has failed conservative management and has elected to undergo a [] total [] replacement Hospital Course: SHAILA was admitted to [facility] on 09/09/18. Patient underwent a [] without complication followed by a brief recovery in PACU and transfer to the Short Stay Surgical Unit in stable condition. Our hospitalist service, physical therapy and occupational therapy also participated in this patients care. Post-op day 1: patient was alert and in no acute distress. Dressing was clean, dry and intact. Operative extremity dorsiflexion and plantarflexion intact, sensation intact to light touch distally , DP2+. Post-op day two: dressing was changed, incision was clean, dry and intact. Patient was deemed to be medically and orthopedically stable for discharge. Physical therapy goals were met. Home Medications Medication Instructions Recorded Confirmed Type Cholecalciferol (Vitamin D3) 1,000 unit PO QAM 09/01/12 09/09/18 History [Vitamin D3] Cyanocobalamin TAB* [Vitamin B12 1,000 mcg PO QAM PRN 09/01/12 09/09/18 History TAB*] Calcium Carbonate [Calcium] 500 mg PO QAM 12/22/17 09/09/18 History Acetaminophen TAB* [Tylenol TAB*] 975 mg PO Q8H tab 09/09/18 Rx Aspirin TAB* [Aspirin 325 MG TAB*] 325 mg PO BID #60 tab 09/09/18 Rx Docusate CAP* [Colace Cap*] 100 mg PO BID PRN #90 cap 09/09/18 Rx Gabapentin CAP(*) [Neurontin 300 300 mg PO BID PRN #30 cap 09/09/18 Rx CAP(*)] oxyCODONE TAB* [Roxycodone TAB 5 10 mg PO Q4H PRN #70 tab MDD 10 09/09/18 Rx mg*] Discharge Instructions following Orthopedic Surgery: Activity: * Weight Bearing as tolerated * Continue physical therapy and occupational therapy exercises as shown * Attend outpatient physical therapy Wound care: * First dressing change 09/11/18 * OK to shower on post-op day 3, 09/12/18. No bathing, swimming, or submerging wound. * Use gentle soap, pat dry. Cover with gauze, JUICE wrap or tape. Call Orthopedic office for: * Increased drainage * Redness * Increased pain * Fever Go to ER with shortness of breath or chest pain. Diet: * Regular diet * Increase fluids and fiber to prevent constipation. * Continue to use stool softeners, call office if no bowel motion within 48 hours. Medications See Home Medication List in your packet for medications that you should take after discharge. DVT Prophylaxis: Aspirin Dosin mg twice a day for 4 weeks post op Pain Control: Oxycodone 5 mg tabs take 1-2 tabs by mouth every 4-6 hours as needed for pain. Maximum of 10 tabs per day. Hold for sedation, wean off as pain allows Gabapentin 300 mg take 1 tab twice a day as needed for pain. Hold for sedation, wean off as pain allows Tylenol 650 mg take 1 tab every 4 hours as needed for pain. Maximum daily dose of Tylenol is 4000 mg from all sources. Antibiotics are required prior to any dental work. FOLLOW UP: Follow up with [Liz] Within 10-14 days, call for appointment Please call our office with any questions or concerns ([phone]) RX to [facility]
--- NOTE | 2018-09-09 15:54 | DS ---
Orthopedic Discharge Summary - Discharge Summary Date of Admission:09/09/18 Date of Discharge: 09/09/18 Date of Surgery: 09/09/18 Attending Orthopedic Provider: Dr Hill Pre-operative Diagnosis: right knee osteoarthritis Operative Procedure: right knee unicompartmental arthroplasty Disposition of Patient: home Condition of Patient: stable History: SHAILA URBANO is a 58 year old F with years of increasingly severe right knee pain. Patient has failed conservative management and has elected to undergo a right knee unicompartmental arthroplasty Hospital Course: SHAILA was admitted to [facility] on 09/09/18. Patient underwent a right knee unicompartmental arthroplasty without complication followed by a brief recovery in PACU and transfer to the Short Stay Surgical Unit in stable condition. Our physical therapy service also participated in this patients care. Post-op day 0: patient was alert and in no acute distress. Dressing was clean, dry and intact. Operative extremity dorsiflexion and plantarflexion intact, she was able to actively flex and extend at the knee. Sensation intact to light touch distally, DP2+. Calves supple and nontender without erythema, edema or palpable cords. Patient was deemed to be stable for discharge and desired discharge home, Dr. Hill aware and agreeable. Physical therapy goals were met. Discharge meds Cholecalciferol (Vitamin D3) [Vitamin D3] 1,000 unit PO QAM 09/01/12 [History Confirmed 09/09/18] Cyanocobalamin TAB* [Vitamin B12 TAB*] 1,000 mcg PO QAM PRN 09/01/12 [History Confirmed 09/09/18] Calcium Carbonate [Calcium] 500 mg PO QAM 12/22/17 [History Confirmed 09/09/18] Acetaminophen TAB* [Tylenol TAB*] 975 mg PO Q8H tab 09/09/18 [Rx] Aspirin TAB* [Aspirin 325 MG TAB*] 325 mg PO BID #60 tab 09/09/18 [Rx] Cephalexin CAP* [Keflex CAP*] 500 mg PO TID #3 cap 09/09/18 [Rx] Docusate CAP* [Colace Cap*] 100 mg PO BID PRN #90 cap 09/09/18 [Rx] Gabapentin CAP(*) [Neurontin 300 CAP(*)] 300 mg PO BID PRN #30 cap 09/09/18 [Rx] celeCOXIB CAP* [CeleBREX CAP*] 100 mg PO BID PRN #30 cap 09/09/18 [Rx] oxyCODONE TAB* [Roxycodone TAB 5 mg*] 10 mg PO Q4H PRN #70 tab MDD 10 09/09/18 [ Rx] Discharge Instructions following Orthopedic Surgery: Activity: * Weight Bearing as tolerated * Continue physical therapy and occupational therapy exercises as shown * Attend outpatient physical therapy Wound care: * First dressing change 09/11/18 * OK to shower on post-op day 3, 09/12/18. No bathing, swimming, or submerging wound. * Use gentle soap, pat dry. Cover with gauze, JUICE wrap or tape. Call Orthopedic office for: * Increased drainage * Redness * Increased pain * Fever Go to ER with shortness of breath or chest pain. Diet: * Regular diet * Increase fluids and fiber to prevent constipation. * Continue to use stool softeners, call office if no bowel motion within 48 hours. Medications See Home Medication List in your packet for medications that you should take after discharge. DVT Prophylaxis: Aspirin Dosin mg twice a day for 4 weeks post op Antibiotic: Keflex 500 mg every 8 hours for 1 day post op Pain Control: Oxycodone 5 mg tabs take 1-2 tabs by mouth every 4-6 hours as needed for pain. Maximum of 10 tabs per day. Hold for sedation Gabapentin 300 mg take 1 tab twice a day as needed for pain. Hold for sedation Celebrex 100 mg by mouth every 12 hours as needed for pain. Tylenol 650 mg take 1 tab every 4 hours as needed for pain. Maximum daily dose of Tylenol is 4000 mg from all sources. Antibiotics are required prior to any dental work. FOLLOW UP: Follow up with [Liz] Within 10-14 days, call for appointment Please call our office with any questions or concerns ([phone]) RX to [facility]
[2018-09-09] MEDS ORDERED: Gabapentin CAP(*) 300 MG PO SCH (21:00)
[2018-09-09] MEDS ORDERED: Docusate CAP* 100 MG PO SCH (21:00)
[2018-09-10] MEDS ORDERED: Enoxaparin(*) 40 MG/0.4 ML SYR SUBCUT SCH (12:00)
[2018-09-12] MEDS ORDERED: Scopolamine PATCH Remove* 1 NOTE MISC PATCH OFF ONE (06:00)
== END 2018-09-09 16:27 | disposition home or self-care (01) ==
LOC: INTOOBSV 05:35 → AA 05:35 → SSU 10:33
PROVIDERS: ADMIT Orthopaedic Surgery; ATTEND Orthopaedic Surgery
DX: M17.11 Unilateral primary osteoarthritis, right knee (principal); Z79.82 Long term (current) use of aspirin
CPT/HCPCS: 96372; A9270-GY; C1776; G0378; J0690; J2250; J2704; J2795; J3490; J8540